=== PATIENT | female | born 1980 | race Hispanic/Latino ===

== ENCOUNTER 2017-06-28 18:56 | Emergency (ER) | payer OTHER ==
[2017-06-28] MEDS ORDERED: Sodium Chloride 0.9% 1,000 ML IV STA (19:13)
[2017-06-28 19:15] VITALS: RESP 18; TEMP 100.9; BMI 28.1
--- NOTE | 2017-06-28 19:23 | ED PDOC ---
Arrival/HPI - General Chief Complaint: Flu-like Symptoms Time Seen by Provider: 06/28/17 19:04 Historian: Patient - History of Present Illness Narrative History of Present Illness (Text): 06/28/17 19:24 A 36 year old Yakut-speaking female, whose past medical history includes hypertension, is accompanied by friend, presents to the emergency department complaining of chest pain, cough, cold, and congestion for 4 days. Patient reports taking Motrin but has had no relief. Denies any history of smoking or EtOH consumption. No PMD Time/Duration: < week (4 days) Past Medical History - Provider Review Nursing Documentation Reviewed: Yes - Infectious Disease Hx of Infectious Diseases: None - Tetanus Immunization Tetanus Immunization: Unknown - Cardiac Hx Hypertension: Yes - Pulmonary Hx Respiratory Disorders: No - Neurological Hx Neurological Disorder: No - HEENT Hx HEENT Disorder: No - Renal Hx Renal Disorder: No - Endocrine/Metabolic Hx Endocrine Disorders: No - Hematological/Oncological Hx Blood Disorders: No - Integumentary Hx Dermatological Disorder: No - Musculoskeletal/Rheumatological Hx Musculoskeletal Disorders: No - Gastrointestinal Hx Gastrointestinal Disorders: No - Genitourinary/Gynecological Hx Genitourinary Disorders: No - Psychiatric Hx Psychophysiologic Disorder: No Hx Substance Use: No - Surgical History Other/Comment: Etopic preg - Anesthesia Hx Anesthesia: Yes Hx Anesthesia Reactions: No Hx Malignant Hyperthermia: No - Suicidal Assessment Feels Threatened In Home Enviroment: No Family/Social History - Physician Review Nursing Documentation Reviewed: Yes Family/Social History: No Known Family HX Smoking Status: Light Smoker < 10 Cigarettes Daily Hx Alcohol Use: Yes Hx Substance Use: No Hx Substance Use Treatment: No Allergies/Home Meds Allergies/Adverse Reactions: Allergies No Known Allergies Allergy (Verified 06/28/17 19:17) Review of Systems - Physician Review All systems were reviewed & negative as marked: Yes - Review of Systems Respiratory: Cough, Other (congestion) Cardiovascular: Chest Pain Physical Exam Vital Signs Reviewed: Yes Vital Signs Temp Pulse Resp BP Pulse Ox 06/28/17 19:11 100.9 F H 108 H 18 135/88 100 Temperature: Febrile Blood Pressure: Normal Pulse: Regular Respiratory Rate: Normal Appearance: Positive for: Well-Appearing Pain Distress: None Mental Status: Positive for: Alert and Oriented X 3 - Systems Exam Head: Present: Atraumatic, Normocephalic Pupils: Present: PERRL Extroacular Muscles: Present: EOMI Conjunctiva: Present: Normal Mouth: Present: Moist Mucous Membranes Neck: Present: Normal Range of Motion Respiratory/Chest: Present: Clear to Auscultation, Good Air Exchange. No: Respiratory Distress, Accessory Muscle Use Cardiovascular: Present: Regular Rate and Rhythm, Normal S1, S2. No: Murmurs Abdomen: Present: Normal Bowel Sounds. No: Tenderness, Distention, Peritoneal Signs Back: Present: Normal Inspection Upper Extremity: Present: Normal Inspection. No: Cyanosis, Edema Lower Extremity: Present: Normal Inspection. No: Edema Neurological: Present: GCS=15, CN II-XII Intact, Speech Normal Skin: Present: Warm, Dry, Normal Color. No: Rashes Psychiatric: Present: Alert, Oriented x 3, Normal Insight, Normal Concentration Medical Decision Making ED Course and Treatment: 06/28/17 19:28 Impression: 36 year old female with cough, cold, congestion, and chest pain. No acute findings on physical examination. Plan: -- EKG -- Chest X-ray -- Influenza A B test -- Tylenol -- Toradol -- IV Fluids -- Urinalysis -- Urine Test -- Reassess and disposition Progress Notes: EKG: Ordered, reviewed, and independently interpreted the EKG. Rate : 113 BPM Rhythm : Sinus tachycardia Interpretation : No ST-segment elevations or depressions, no T-wave inversions, normal intervals. Comparison : No previous EKG for comparison. - Lab Interpretations Lab Results: 06/28/17 19:25 06/28/17 19:25 Lab Results 06/28/17 19:57: Urine Color Yellow, Urine Appearance Clear, Urine pH 6.5, Ur Specific [place] 1.020, Urine Protein Negative, Urine Glucose (UA) Negative, Urine Ketones Negative, Urine Blood Negative, Urine Nitrate Negative, Urine Bilirubin Negative, Urine Urobilinogen 0.2, Ur Leukocyte Esterase Negative 06/28/17 19:25: Sodium 140, Potassium 4.3, Chloride 101, Carbon Dioxide 27, Anion Gap 16, BUN 10, Creatinine 0.7, Est GFR ( Amer) > 60, Est GFR (Non- Af Amer) > 60, Random Glucose 88, Calcium 9.6, Total Bilirubin 0.2, AST 37 H, ALT 61 H, Alkaline Phosphatase 97, Lactate Dehydrogenase 428, Total Creatine Kinase 91, Troponin I < 0.01, Total Protein 8.1, Albumin 4.2, Globulin 3.9, Albumin/Globulin Ratio 1.1 06/28/17 19:25: PT 12.0, INR 1.05, D-Dimer, Quantitative < 200 06/28/17 19:25: Influenza Typ A,B (EIA) Negative for flu a/b 06/28/17 19:25: WBC 9.8, RBC 4.33, Hgb 12.4, Hct 37.6, MCV 86.8, MCH 28.6, MCHC 33.0, RDW 13.8, Plt Count 340, MPV 10.7, Gran % 61.4, Lymph % (Auto) 27.7, [place] % (Auto) 9.6 H, Eos % (Auto) 1.0 L, Baso % (Auto) 0.3, Gran # 6.02, Lymph # ( Auto) 2.7, [place] # (Auto) 0.9 H, Eos # (Auto) 0.1, Baso # (Auto) 0.03 - RAD Interpretation Radiology Orders: 06/28/17 19:13 CHEST ONE VIEW [RAD] Stat - Medication Orders Current Medication Orders: Azithromycin (Zithromax) 500 mg PO STAT STA PRN Reason: Protocol Stop: 06/28/17 21:15 Discontinued Medications Acetaminophen (Tylenol 325mg Tab) 975 mg PO STAT STA Stop: 06/28/17 19:14 Last Admin: 06/28/17 19:30 Dose: 975 mg MAR Pain/Vitals Document 06/28/17 19:30 YP (Rec: 06/28/17 19:43 YP [id number]) Pain Reassessment Is This A Pain ReAssessment? No Sleep Is patient sleeping during reassessment? No Presence of Pain Presence of Pain Yes Albuterol Sulfate (Albuterol 0.083% Inhal Yoly (2.5 Mg/3 Ml) Ud) 2.5 mg INH STAT STA Stop: 06/28/17 20:50 Sodium Chloride (Sodium Chloride 0.9%) 1,000 mls @ 999 mls/hr IV .Q1H1M STA Stop: 06/28/17 20:13 Last Admin: 06/28/17 19:30 Dose: 999 mls/hr eMAR Start Stop Document 06/28/17 19:30 YP (Rec: 06/28/17 19:43 YP [id number]) Intravenous Solution Start Date 06/28/17 Start Time 19:30 End Date 06/28/17 End time 20:30 Total Infusion Time 60 Ketorolac Tromethamine (Toradol) 30 mg IVP STAT STA Stop: 06/28/17 19:14 Last Admin: 06/28/17 20:02 Dose: 30 mg MAR Pain Assessment Document 06/28/17 20:02 YP (Rec: 06/28/17 20:02 YP [id number]) Pain Reassessment Is this a pain reassessment? Yes Sleep Is patient sleeping during reassessment? No Presence of Pain Presence of Pain Yes IVP Administration Document 06/28/17 20:02 YP (Rec: 06/28/17 20:02 YP [id number]) Charges for Administration # of IVP Administrations 1 Promethazine HCl/Codeine (Phenergan/Codeine Oral Syrup) 10 ml PO STAT STA Stop: 06/28/17 21:14 - PA / DIVISIONAL MERCHANDISING MANAGER / Resident Statement MD/DO has reviewed & agrees with the documentation as recorded. - Scribe Statement The provider has reviewed the documentation as recorded by the Real Carballo Provider Scribe Attestation: All medical record entries made by the Real were at my direction and personally dictated by me. I have reviewed the chart and agree that the record accurately reflects my personal performance of the history, physical exam, medical decision making, and the department course for this patient. I have also personally directed, reviewed, and agree with the discharge instructions and disposition. Disposition/Present on Arrival - Present on Arrival Any Indicators Present on Arrival: No History of DVT/PE: No History of Uncontrolled Diabetes: No Urinary Catheter: No History of Decub. Ulcer: No History Surgical Site Infection Following: None - Disposition Have Diagnosis and Disposition been Completed?: Yes Diagnosis: Bronchitis, Pleuritic chest pain Disposition: HOME/ ROUTINE Disposition Time: 21:17 Patient Plan: Discharge Condition: GOOD Discharge Instructions (ExitCare): Acute Bronchitis (ED), Pleurisy (ED) Additional Instructions: Anahy- Sorry you are not feeling well. Your tests show that you have bronchitis. Antibiotics, Cough Syrup, Motrin and an Albuterol Inhaler. Follow up with your doctor. Return to us if worse. Best- Dr. Eric Maynard Prescriptions: Azithromycin [Zithromax] 500 mg PO DAILY #7 tablet Ibuprofen [Motrin Tab] 800 mg PO TID #30 tab Promethazine/Codeine [Codeine/Promethazine 10 MG/5 Ml-6.25 MG/5 Ml] 5 ml PO TID #150 udc Forms: [employer] ([place])
[2017-06-28 19:44] LABS: BASO # 0.03 K/mm3 (0.0-2.0); BASO % 0.3 % (0.0-3.0); EOS # 0.1 (0.0-0.7); GRAN # 6.02 (1.4-6.5); GRAN % 61.4 % (50.0-68.0); HEMOGLOBIN 12.4 g/dL (12.0-16.0); LYMPH # 2.7 (1.2-3.4); LYMPH % 27.7 % (22.0-35.0); MEAN CELL VOLUME 86.8 fl (80.0-105.0); MEAN CORPUSCULAR HEMOGLOBIN 28.6 pg (25.0-35.0); MEAN PLATELET VOLUME 10.7 fl (7.0-11.0); MONO # 0.9 (0.1-0.6); MONO % 9.6 % (1.0-6.0); RBC 4.33 10^6/uL (3.5-6.1); RED CELL DISTRIBUTION WIDTH 13.8 % (11.5-14.5); WHITE BLOOD COUNT 9.8 10^3/ul (4.5-11.0)
[2017-06-28 20:10] LABS: D DIMER < 200 ng/mL (0-243); INR 1.05 (0.93-1.08)
[2017-06-28 20:12] LABS: ALB/GLOB RATIO 1.1 (1.1-1.8); ALBUMIN 4.2 g/dL (3.0-4.8); ALT/SGPT 61 U/L (7-56); AST/SGOT 37 U/L (14-36); BLOOD UREA NITROGEN 10 mg/dL (7-21); CALCIUM 9.6 mg/dL (8.4-10.5); GFR AFRICAN-AMERICAN > 60; GFR NON-AFRICAN AMERICAN > 60
[2017-06-28 20:17] LABS: PH,URINE 6.5 (4.7-8.0); URINE APPEARANCE CLEAR (CLEAR); URINE BILIRUBIN NEGATIVE (NEGATIVE); URINE BLOOD NEGATIVE (NEGATIVE); URINE COLOR YELLOW (YELLOW); URINE GLUCOSE (UA) NEGATIVE (NEGATIVE); URINE LEUKOCYTE ESTERASE NEGATIVE Leu/uL (NEGATIVE); URINE NITRATE NEGATIVE (NEGATIVE); URINE PROTEIN NEGATIVE mg/dL (<30 mg/dL); URINE UROBILINOGEN 0.2 E.U./dL (<1 E.U./dL)
[2017-06-28 20:20] LABS: TROPONIN I < 0.01 ng/mL
[2017-06-28] MEDS ORDERED: Albuterol 0.083% Inhal Sol (2.5 mg/3 mL) UD INH STA (20:49)
[2017-06-28] MEDS ORDERED: Promethazine/Cod 6.25mg-10mg/5ml Syr UD PO STA (21:13)
[2017-06-28 21:26] VITALS: BP 156/35; PULSE 94; O2SAT 16
--- NOTE | 2017-06-29 10:13 | RAD ---
PROCEDURE: CHEST RADIOGRAPH, 1 VIEW HISTORY: cough and chest pain mod:1 view pt will not stand for exam-pain COMPARISON: Comparison is made with 07/13/2014 FINDINGS: LUNGS: No evidence of new infiltrate or consolidation in the lungs. PLEURA: No pneumothorax or pleural fluid seen. CARDIOVASCULAR: Normal. OSSEOUS STRUCTURES: No significant abnormalities. VISUALIZED UPPER ABDOMEN: Normal. OTHER FINDINGS: None. IMPRESSION: No active disease.
--- NOTE | 2017-06-29 23:51 | CARD ---
APPROVED REPORT EKG Measurement Heart [id number] ID [id number] <Conclusion> Sinus tachycardia Low voltage QRS Nonspecific T wave abnormality Abnormal ECG
== END 2017-06-28 21:55 | disposition home or self-care (01) ==
LOC: ED 18:56
DX: J40 Bronchitis, not specified as acute or chronic (principal); R07.81 Pleurodynia; I10 Essential (primary) hypertension; F17.210 Nicotine dependence, cigarettes, uncomplicated
CPT/HCPCS: 71045; 80053; 81003; 81025; 82550; 83615; 84484; 85025; 85378; 85610; 87804; 93005; 96361; 96374; 99285; J1885; J7040

== ENCOUNTER 2018-01-30 04:25 | Emergency (ER) | payer MEDICAID, OTHER ==
[2018-01-30] MEDS ORDERED: Morphine 4 mg/ml ISec IVP STA (04:36)
[2018-01-30] MEDS ORDERED: Sodium Chloride 0.9% 1,000 ML IV STA (04:36)
[2018-01-30 04:39] VITALS: BP 117/73; PULSE 93; RESP 17; TEMP 97.9; O2SAT 99; BMI 26.8
--- NOTE | 2018-01-30 04:39 | ED PDOC ---
Arrival/HPI - General Chief Complaint: Abdominal Pain Time Seen by Provider: 01/30/18 04:26 Historian: Patient - History of Present Illness Narrative History of Present Illness (Text): 01/30/18 04:36 37 year old female, whose past medical history includes hypertension, presents to the emergency department with abdominal pain and vomiting, since 4 hours prior. Patient localizes pain to RUQ and Epigastric regions. Patient denies any fever, chills, headache, dizziness, chest pain, shortness of breath, cough, neck pain, urinary/bowel changes, or any other complaint. Time/Duration: 4-6 hours Past Medical History - Provider Review Nursing Documentation Reviewed: Yes - Infectious Disease Hx of Infectious Diseases: None - Tetanus Immunization Tetanus Immunization: Unknown - Cardiac Hx Hypertension: Yes - Pulmonary Hx Respiratory Disorders: No - Neurological Hx Neurological Disorder: No - HEENT Hx HEENT Disorder: No - Renal Hx Renal Disorder: No - Endocrine/Metabolic Hx Endocrine Disorders: No - Hematological/Oncological Hx Blood Disorders: No - Integumentary Hx Dermatological Disorder: No - Musculoskeletal/Rheumatological Hx Musculoskeletal Disorders: No - Gastrointestinal Hx Gastrointestinal Disorders: No - Genitourinary/Gynecological Hx Genitourinary Disorders: No - Psychiatric Hx Psychophysiologic Disorder: No Hx Substance Use: No - Surgical History Other/Comment: Etopic preg - Anesthesia Hx Anesthesia: Yes Hx Anesthesia Reactions: No Hx Malignant Hyperthermia: No - Suicidal Assessment Feels Threatened In Home Enviroment: No Family/Social History - Physician Review Nursing Documentation Reviewed: Yes Family/Social History: No Known Family HX Smoking Status: Light Smoker < 10 Cigarettes Daily Hx Alcohol Use: Yes Hx Substance Use: No Hx Substance Use Treatment: No Allergies/Home Meds Allergies/Adverse Reactions: Allergies No Known Allergies Allergy (Verified 01/30/18 04:33) Home Medications: Home Meds Medication Instructions Recorded Confirmed No Known Home Med 01/30/18 01/30/18 Physical Exam Vital Signs Reviewed: Yes Vital Signs Temp Pulse Resp BP Pulse Ox 01/30/18 04:36 97.9 F 93 H 17 117/73 99 Temperature: Afebrile Blood Pressure: Normal Pulse: Regular Respiratory Rate: Normal Appearance: Positive for: Well-Appearing, Non-Toxic, Comfortable Pain Distress: None Mental Status: Positive for: Alert and Oriented X 3 - Systems Exam Head: Present: Atraumatic, Normocephalic Pupils: Present: PERRL Extroacular Muscles: Present: EOMI Conjunctiva: Present: Normal Mouth: Present: Moist Mucous Membranes Neck: Present: Normal Range of Motion Respiratory/Chest: Present: Clear to Auscultation, Good Air Exchange. No: Respiratory Distress, Accessory Muscle Use Cardiovascular: Present: Regular Rate and Rhythm, Normal S1, S2. No: Murmurs Abdomen: Present: Tenderness (RUQ). No: Distention, Peritoneal Signs Back: Present: Normal Inspection Upper Extremity: Present: Normal Inspection. No: Cyanosis, Edema Lower Extremity: Present: Normal Inspection. No: Edema Neurological: Present: GCS=15, CN II-XII Intact, Speech Normal Skin: Present: Warm, Dry, Normal Color. No: Rashes Psychiatric: Present: Alert, Oriented x 3, Normal Insight, Normal Concentration Medical Decision Making ED Course and Treatment: 01/30/18 04:40 Impression: 37 year old female presents with RUQ pain and vomiting. Plan: -- Morphine -- Protonix -- Zofran -- Labs -- Urinalysis -- Reassess and disposition Prior Visits: Notes and results from previous visits were reviewed. pt walked out of ed prior to tx Progress Notes: 01/30/18 06:32 - Lab Interpretations Lab Results: 01/30/18 05:02 01/30/18 05:02 Lab Results 01/30/18 05:02: Beta HCG, Quant < 2.39 01/30/18 05:02: Sodium Pending, Potassium Pending, Chloride Pending, Carbon Dioxide Pending, Anion Gap Pending, BUN Pending, Creatinine 0.6 L, Est GFR ( Amer) > 60, Est GFR (Non-Af Amer) > 60, Random Glucose 113 H, Calcium 9.2, Magnesium Pending, Total Bilirubin 0.5, AST Pending, ALT Pending, Alkaline Phosphatase Pending, Total Protein 8.4 H, Albumin 4.5, Globulin 3.9, Albumin/ Globulin Ratio 1.1, Lipase 49 01/30/18 05:02: PT 12.0, INR 1.04, APTT 23.9 L 01/30/18 05:02: WBC 9.5, RBC 4.52, Hgb 12.5, Hct 38.6, MCV 85.4, MCH 27.7, MCHC 32.4, RDW 13.9, Plt Count 420, MPV 10.1, Gran % 43.1 L, Lymph % (Auto) 44.7 H, [place] % (Auto) 8.4 H, Eos % (Auto) 3.3, Baso % (Auto) 0.5, Gran # 4.11, Lymph # ( Auto) 4.3 H, [place] # (Auto) 0.8 H, Eos # (Auto) 0.3, Baso # (Auto) 0.05 01/30/18 04:59: Urine Color Yellow, Urine Appearance Sl cloudy, Urine pH 6.0, Ur Specific [place] >= 1.030, Urine Protein 30 H, Urine Glucose (UA) Negative, Urine Ketones 15 H, Urine Blood Negative, Urine Nitrate Negative, Urine Bilirubin Negative, Urine Urobilinogen 0.2, Ur Leukocyte Esterase Negative, Urine RBC 0 - 2, Urine WBC 0 - 2, Ur Epithelial Cells Many, Calcium Oxalate Crystal Trace, Urine Bacteria Few - Medication Orders Current Medication Orders: Discontinued Medications Sodium Chloride (Sodium Chloride 0.9%) 1,000 mls @ 100 mls/hr IV .Q10H STA Stop: 01/30/18 14:35 Morphine Sulfate (Morphine) 4 mg IVP STAT STA Stop: 01/30/18 04:37 Ondansetron HCl (Zofran Inj) 4 mg IVP STAT STA Stop: 01/30/18 04:37 Pantoprazole Sodium (Protonix Inj) 40 mg IVP STAT STA Stop: 01/30/18 04:37 - Scribe Statement The provider has reviewed the documentation as recorded by the Real Sutherland Provider Scribe Attestation: All medical record entries made by the Real were at my direction and personally dictated by me. I have reviewed the chart and agree that the record accurately reflects my personal performance of the history, physical exam, medical decision making, and the department course for this patient. I have also personally directed, reviewed, and agree with the discharge instructions and disposition. Disposition/Present on Arrival - Present on Arrival Any Indicators Present on Arrival: No History of DVT/PE: No History of Uncontrolled Diabetes: No Urinary Catheter: No History of Decub. Ulcer: No History Surgical Site Infection Following: None - Disposition Have Diagnosis and Disposition been Completed?: Yes Diagnosis: Abdominal pain Disposition: LEFT W/O TREATMENT - ER ONLY Disposition Time: :20 Condition: UNKNOWN Referrals: Olu Mancilla DO [Primary Care Provider] - Follow up with primary Forms: [employer] ([place])
[2018-01-30 05:28] LABS: URINE BILIRUBIN NEGATIVE (NEGATIVE); URINE BLOOD NEGATIVE (NEGATIVE); URINE GLUCOSE (UA) NEGATIVE (NEGATIVE); URINE LEUKOCYTE ESTERASE NEGATIVE Leu/uL (NEGATIVE); URINE PROTEIN 30 mg/dL (<30 mg/dL); URINE UROBILINOGEN 0.2 E.U./dL (<1 E.U./dL)
[2018-01-30 05:28] LABS: BASO # 0.05 K/mm3 (0.0-2.0); BASO % 0.5 % (0.0-3.0); EOS # 0.3 (0.0-0.7); EOS % 3.3 % (1.5-5.0); GRAN # 4.11 (1.4-6.5); GRAN % 43.1 % (50.0-68.0); HEMOGLOBIN 12.5 g/dL (12.0-16.0); LYMPH # 4.3 (1.2-3.4); LYMPH % 44.7 % (22.0-35.0); MEAN CELL VOLUME 85.4 fl (80.0-105.0); MEAN CORPUSCULAR HEMOGLOBIN 27.7 pg (25.0-35.0); MEAN CORPUSCULAR HGB CONC 32.4 g/dl (31.0-37.0); MEAN PLATELET VOLUME 10.1 fl (7.0-11.0); MONO # 0.8 (0.1-0.6); MONO % 8.4 % (1.0-6.0); RBC 4.52 10^6/uL (3.5-6.1); RED CELL DISTRIBUTION WIDTH 13.9 % (11.5-14.5); WHITE BLOOD COUNT 9.5 10^3/ul (4.5-11.0)
[2018-01-30 05:32] LABS: URINE APPEARANCE SL CLOUDY (CLEAR); URINE COLOR YELLOW (YELLOW)
[2018-01-30 05:32] LABS: ALB/GLOB RATIO 1.1 (1.1-1.8); ALBUMIN 4.5 g/dL (3.0-4.8); CALCIUM 9.2 mg/dL (8.4-10.5); GFR NON-AFRICAN AMERICAN > 60; LIPASE 49 U/L (23-300)
[2018-01-30 05:40] LABS: INR 1.04; PARTIAL THROMBOPLASTIN TIME 23.9 Seconds (25.1-36.5)
[2018-01-30 05:41] LABS: URINE EPITHELIAL CELLS MANY /hpf (0-5); URINE RBC 0 - 2 /hpf (0-2); URINE WBC 0 - 2 /hpf (0-6)
[2018-01-30 05:42] LABS: URINE BACTERIA FEW (NEG); URINE CALCIUM OXALATE CRYSTALS TRACE /hpf
[2018-01-30 06:44] LABS: ALT/SGPT 44 U/L (7-56); AST/SGOT 42 U/L (14-36); BLOOD UREA NITROGEN 11 mg/dL (7-21)
== END 2018-01-30 05:19 | disposition left against medical advice (07) ==
LOC: ED 04:25
DX: R10.11 Right upper quadrant pain (principal); I10 Essential (primary) hypertension; F17.210 Nicotine dependence, cigarettes, uncomplicated